=== PATIENT | female | born 1950 | race Caucasian/White ===

== ENCOUNTER 2025-08-01 10:29 | Outpatient (CLI) | payer BC, SELFPAY ==
[2025-08-01] VITALS (13 sets, daily range): BP systolic 120–164; BP diastolic 66–82; PULSE 61–79; RESP 10–20; TEMP 37; O2SAT 95–98
--- NOTE | 2025-08-01 12:30 | DI.RAD_ITS ---
Exam(s) XR PAIN CLINIC SACRIOILIAC 2V EXAM: XR PAIN CLINIC SACRIOILIAC 2V CLINICAL HISTORY: Dx: Sacroiliac Joint Dysfunction. TECHNIQUE: Fluoroscopy was provided for the referring physician for guidance with performing pain clinic injection procedure. COMPARISON: No exams were available for comparison FINDINGS: Please see procedure note for details. Fluoro time: 21.7 seconds RADIATION DOSE DELIVERED: Ka,r=3.9 mGy
[2025-08-01] MEDS: methylPREDNISolone ACETATE 40 MG/ML VIAL IJ (12:59)
[2025-08-01] MEDS: Nerve Block Tray 1 EACH MC (13:00)
--- NOTE | 2025-08-02 11:02 | PDOC.PAIN ---
Date of service: 08/01/25 Time of Service: 11:00 Pain Managment Procedure Note Procedure Note Procedure Note: PROCEDURE NOTE BILATERAL INTRA-ARTICULAR SACROILIAC JOINT INJECTION Date of Service: August 01, 2025 Patient: BERHANE NAVARRO Provider: John Sarmiento DO, MPH COMMENTS: I previously evaluated the patient in the office and their symptoms in relation to the sacroiliac joint pain have remained the same. I did change this procedure from lumbar medial branch blocks to a bilateral sacroiliac joint injection as she has fusion through S1 and her pain is consistent with sacroliliac joint type pain. Pre-operative diagnosis: Sacroiliac joint dysfunction ICD-10 M53.3 Post-operative diagnosis: Same Pre-procedure pain: VAS= 8/10 BERHANE NAVARRO has been referred to our [facility] for a Bilateral intra-articular Sacroiliac joint injection. BERHANE was interviewed and the medical record reviewed. There were no medical, pharmacologic, radiographic or other structural contraindications to attempting a fluoroscopically-guided, contrast-enhanced, intra-articular Sacroiliac joint injection. The risks, benefits, and potential side effects of this procedure were reviewed with the patient. Questions and concerns were addressed. After it was clear that BERHANE was fully informed about the procedure, the printed consent form was signed by the patient and myself. BERHANE was placed in the prone position on the fluoroscopy table and an automated blood pressure cuff, 3 lead EKG, and pulse oximeter were applied. The skin entry point for approaching the Left sacroiliac joint was identified under the most advantageous fluoroscopic view and marked. Following thorough Chlorhexadine preparation of the skin and draping with sterile surgical drapes, 2 mls of 1% lidocaine was infiltrated into the skin at the entry point and the surrounding subcutaneous tissues. Next, a 3.5 22G spinal needle was placed under fluoroscopic guidance into the Left sacroiliac joint. Intra-articular placement was confirmed by a clear arthrogram resulting from the injection of 0.25ml of Omnipaque-240. Next, 1 ml of Depo- Medrol 40 mg/ml was injected intra-articularly with an initial reproduction of a significant component of the usual pain. This was followed with 1 ml of 1% Lidocaine. The needle was then removed without difficulty. (49 ml of Omnipaque-240 was wasted). The exact procedure was completed on the opposite sacroiliac joint. BERHANE's vital signs were stable throughout the procedure and were as recorded in nursing records. Follow up plans and appointments were discussed with BERHANE. Post procedure instructions were given as documented in nursing records. Having met discharge criteria, B[facility]HANE was [facility] from the [facility] COMMENTS: Post-procedure pain: VAS= 0/10. If the patient receives at least 50% improvement in pain and/or function for at least 3 months, this procedure can be repeated if needed. I personally performed this entire procedure. JOHN SARMIENTO DO, MPH ABPMR-subspecialty board certification in Pain Medicine [facility] Coding Conscious Sedation used for procedure: No CPT Codes: SI Joint Inj; incl Fluoro * BILATERAL* - [id number] ([id number]) Additional Codes: Date of Service () Diagnoses: sacroiliac joint dysfunction
== END 2025-08-01 10:30 | disposition home or self-care (01) ==
PROVIDERS: PCP Family Medicine; Visit Provider Preventive Medicine Occupational Medicine
DX: M54.50 Low back pain, unspecified (principal); M53.3 Sacrococcygeal disorders, not elsewhere classified
CPT/HCPCS: 27096; 72200; J0665; J1010